=== PATIENT | female | born 1950 | race Caucasian/White ===

== ENCOUNTER 2020-01-29 18:19 | Emergency (ER) | payer MEDICARE ==
[~2020-01-29] VITALS: Ht 162.5 cm; Wt 98.0 kg
[2020-01-29] MEDS ORDERED: ORPHENADRINE 60 MG/2 ML (NORFLEX) AMP (ED ONLY) IM STA (18:29)
[2020-01-29] MEDS ORDERED: KETOROLAC 60 MG/2 ML VIAL IM STA (18:29)
--- NOTE | 2020-01-29 19:13 | ED Fall/Injury ---
General Chief Complaint: Trauma-Non Activation Stated Complaint: FALL Nursing Triage Note: Patient presents to the ED via EMS with c/o lower back pain after a fall. Patient states she was checking into a hotel seen some insects and decided to put her bags back into her care, while putting her stuff into the car she was walking backward and tripped over the parking block. This caused her to fall backward and land on her lower back and bottom. Source: patient, EMS History of Present Illness Date Seen by Provider: Jan 29, 2020 Time Seen by Provider: 18:19 Initial Comments 69-year-old female presenting with complaints of low back pain, bilateral hip pain, abdominal bloating and pain. She states that this started since she had fallen at a hotel. She had gone into her room to check in and noticed there were spiders on the wall. She grabbed her things and was praying to the car. She states that she fell backwards over the concrete car stop. She landed flat on her back. She denies any her head or losing consciousness. She has not taken anything for the pain. She was having increased pain with movement. She states that she has had prior surgery on her lumbar spine for spinal stenosis. She denies any numbness or tingling in her legs. She has no loss of bowel or bladder control. Location Injury Occurred: [facility] Allergies and Home Medications Allergies Coded Allergies: No Known Drug Allergies (Unverified , 01/29/20) Home Medications Oxycodone HCl/Acetaminophen 1 Each Tablet, 1 EACH PO Q6H PRN for PAIN-SEVERE (8- 10) Prescribed by: ABIGAIL JOHNSON on 01/29/202045 Patient Home Medication List Home Medication List Reviewed: Yes Review of Systems Review of Systems Constitutional: No chills, No fever Eyes: No Symptoms Reported Ears, Nose, Mouth, Throat: no symptoms reported Respiratory: no symptoms reported Cardiovascular: no symptoms reported Gastrointestinal: see HPI Genitourinary: no symptoms reported Musculoskeletal: see HPI Skin: No change in color (no bruising or abrasions noted) Psychiatric/Neurological: Denies Headache, Denies Numbness, Denies Paresthesia All Other Systems Reviewed Negative Unless Noted: Yes (Negative excepted noted.) Past Xaxaypt-Hyaavf-Wvxuff Hx Past Med/Social Hx: Reviewed Nursing Past Med/Soc Hx Patient Social History Alcohol Use: Regular Use Number of Drinks Today: 1 Alcohol Beverage of Choice: Beer Recreational Drug Use: Yes (MARIJUANA) Drug of Choice: MARIJUANA Smoking Status: Never a Smoker 2nd Hand Smoke Exposure: No Recent Foreign Travel: No Contact w/Someone Who Travel: No Recent Infectious Disease Expo: No Recent Hopitalizations: No Physical Abuse: No Sexual Abuse: No Mistreated: No Fear: No Seasonal Allergies Seasonal Allergies: No Past Medical History Surgeries: Yes (BACK SURGERY) Orthopedic Respiratory: No Cardiac: No Neurological: No Genitourinary: No Gastrointestinal: No Musculoskeletal: Yes (SPINAL STENOSIS) Back Injury HEENT: No Cancer: No Psychosocial: No Blood Disorders: No Physical Exam Vital Signs Vital Signs - First Documented 01/29/20 18:29 Temp 36.5 Pulse 87 Resp 16 B/P (MAP) 171/36 (81) Pulse Ox 99 O2 Delivery Room Air Capillary Refill : Less Than 3 Seconds Height, Weight, BMI Height: '" Weight: lbs. oz. kg; 37.00 BMI Method: General Appearance: WD/WN, moderate distress, obese HEENT: PERRL/EOMI, pharynx normal Neck: non-tender, full range of motion, supple, normal inspection Cardiovascular: normal peripheral pulses, regular rate, rhythm Respiratory: chest non-tender, lungs clear, normal breath sounds, no respiratory distress, no accessory muscle use Gastrointestinal: normal bowel sounds, soft, no pulsatile mass; No guarding, No rebound; tenderness (diffuse tenderness to her abdomen she denies any rebound or guarding) Back: muscle spasm (paraspinal muscle spasms in the lower lumbar and sacral area), vertebral tenderness (tenderness in the lower lumbar and sacral area.) Extremities: normal range of motion, normal capillary refill Neurologic/Psychiatric: material disposition inspector II-XII nml as tested, no motor/sensory deficits, alert, oriented x 3, other (patient is anxious and complaining of pain. Deep tendon reflexes in the patellar and Achilles are equal bilaterally) Skin: normal color, warm/dry; No ecchymosis Robyn Coma Score Best Eye Response: (4) Open Spontaneously Best Verbal Response: (5) Oriented Best Motor Response: (6) Obeys Commands [place] Total: 15 Progress/Results/Core Measures Results/Orders My Orders Orders - ABIGAIL JOHNSON MD Ketorolac Injection (Toradol Injection) (01/29/20 18:29) Orphenadrine Injection (Norflex Injectio (01/29/20 18:29) Ct Abdomen/Pelvis Wo (01/29/20 18:29) Rx-Oxycodone/Apap 5-325 Mg (Rx-Percocet (01/29/20 20:45) Vital Signs/I&O 01/29/20 01/29/20 18:29 21:06 Temp 36.5 Pulse 87 86 Resp 16 18 B/P (MAP) 171/36 (81) 133/78 Pulse Ox 99 98 O2 Delivery Room Air Room Air Blood Pressure Mean: 81 Progress Progress Note #1: Progress Note Try Toradol and Norflex for her pain and muscle spasms. Obtain a CT scan of her abdomen and pelvis and lumbar spine to evaluate for possible acute injury. Progress Note #2: Time: 19:55 Progress Note Patient ambulating in the emergency department. She has mild improvement in her symptoms with treatment. Awaiting CT scan Progress Note #3: Progress Note CT scan shows a mild anterior endplate L1 compression fracture. No other acute significant abnormality in the abdomen and pelvis. Her symptoms were improved with treatment in the ED. Discharge on Percocet and counseled on laxative use. Encouraged to follow-up or return if symptoms were worsening. She is traveling through [facility] and not from here. [place] [address] to [place] to visit family. Given information for Dr. Salguero the on-call orthopedic doctor out of [place] as well. Diagnostic Imaging Diagonstic Imaging: CT Plain Films/CT/US/NM/MRI: abdomen, pelvis Comments NAME: LEILANI DE LA TORRE [facility] REC#: [id number] PT STATUS: REG ER : 1950 PHYSICIAN: ABIGAIL JOHNSON MD ADMIT DATE: 01/29/20/ER FS Draft Date of Exam:01/29/20 CT ABDOMEN/PELVIS WO PROCEDURE: CT abdomen and pelvis without contrast. TECHNIQUE: Multiple contiguous axial images were obtained through the abdomen and pelvis without the use of intravenous contrast. Auto Exposure Controls were utilized during the CT exam to meet ALARA standards for radiation dose reduction. INDICATION: Fall. Low back pain. Bilateral hip pain Liver is normal. There are gallstones in the dependent portion of the gallbladder. The bile ducts are not dilated. The spleen, pancreas and adrenals are normal. The kidneys, ureters and bladder are normal. There is no adnexal mass. There is diverticulosis of the colon with no evidence of diverticulitis or other acute bowel abnormality. There is no free intraperitoneal air or fluid. There is dextroscoliosis of the lumbar spine. There is minimal loss of height involving the superior endplate of the L1 vertebral body. This is probably but not definitely an acute compression fracture. There is less than 10% loss of height anteriorly. The middle and posterior thirds of this vertebral body appear intact. The posterior cortex is intact. The lamina and pedicles are intact. There are changes of degenerative disc and facet disease in the lower lumbar spine. No hip fracture seen. IMPRESSION: There is irregularity of the superior endplate of L1 vertebral body with mild loss of height consistent with compression fracture at this site. No other acute abnormality is seen. Dictated on workstation # [id number] Dict: 01/29/202008 Trans: 01/29/202013 [facility] [id number] Interpreted by: GLENN DELGADO MD Electronically signed by: Departure Impression Primary Impression: Lumbar compression fracture Qualified Codes: S32.010A - Wedge compression fracture of first lumbar vertebra, initial encounter for closed fracture Additional Impression: Fall Qualified Codes: W19.XXXA - Unspecified fall, initial encounter Disposition: 01 HOME, SELF-CARE Condition: Stable Departure-Patient Inst. Decision time for Depature: 20:44 Referrals: RONN SALGUERO MD Patient Instructions: Vertebral Compression Fracture (DC), Low Back Pain (DC) Add. Discharge Instructions: Try alternating ice and heat to your back to help with pain. Use the narcotic pain medicine for severe pain. Take a laxative such as dulcolax or miralax to help keep your stools soft and regular while taking the narcotic pain medicine. Follow up with Orthopedics or Spine doctor for continued pain or more problems. All discharge instructions reviewed with patient and/or family. Voiced understanding. Scripts Oxycodone HCl/Acetaminophen (Oxycodone-Acetaminophen 5-325) 1 Each Tablet 1 EACH PO Q6H PRN for PAIN-SEVERE (8-10) MDD 6 for 3 Days, #12 TAB 0 Refills Prov: ABIGAIL JOHNSON MD 01/29/20 ABIGAIL JOHNSON MD Jan 29, 2020 19:13
--- NOTE | 2020-01-29 20:15 | Diagnostic Imaging Report ---
PROCEDURE: CT abdomen and pelvis without contrast. TECHNIQUE: Multiple contiguous axial images were obtained through the abdomen and pelvis without the use of intravenous contrast. Auto Exposure Controls were utilized during the CT exam to meet ALARA standards for radiation dose reduction. INDICATION: Fall. Low back pain. Bilateral hip pain Liver is normal. There are gallstones in the dependent portion of the gallbladder. The bile ducts are not dilated. The spleen, pancreas and adrenals are normal. The kidneys, ureters and bladder are normal. There is no adnexal mass. There is diverticulosis of the colon with no evidence of diverticulitis or other acute bowel abnormality. There is no free intraperitoneal air or fluid. There is dextroscoliosis of the lumbar spine. There is minimal loss of height involving the superior endplate of the L1 vertebral body. This is probably but not definitely an acute compression fracture. There is less than 10% loss of height anteriorly. The middle and posterior thirds of this vertebral body appear intact. The posterior cortex is intact. The lamina and pedicles are intact. There are changes of degenerative disc and facet disease in the lower lumbar spine. No hip fracture seen. IMPRESSION: There is irregularity of the superior endplate of L1 vertebral body with mild loss of height consistent with compression fracture at this site. No other acute abnormality is seen. Dictated by: Dictated on workstation # [id number]
[2020-01-29] MEDS ORDERED: RX-OXYCODONE/APAP 5-325 MG #4 TAB PK PO PRN (20:45)
[2020-01-29] MEDS ORDERED: OXYC-471 PO (20:46)
[2020-01-29 21:06] VITALS: BP 133/78
== END 2020-01-29 21:06 | disposition home or self-care (01) ==
LOC: ER FS 18:21
DX: S32.010A Wedge compression fracture of first lumbar vertebra, initial encounter for closed fracture (principal); R40.2142 Coma scale, eyes open, spontaneous, at arrival to emergency department; R40.2252 Coma scale, best verbal response, oriented, at arrival to emergency department; R40.2362 Coma scale, best motor response, obeys commands, at arrival to emergency department; W01.0XXA Fall on same level from slipping, tripping and stumbling without subsequent striking against object, initial encounter; Y92.481 Parking lot as the place of occurrence of the external cause
CPT/HCPCS: 74176